=== PATIENT | female | born 2000 | race Caucasian/White ===

== ENCOUNTER 2020-10-01 11:00 | Outpatient (RCR) | payer BC, SELFPAY ==
--- NOTE | 2020-09-02 10:55 | PTOPEVAL ---
PHYSICAL THERAPY EVALUATION AND PLAN OF CARE Thank you for referring Rupert Zuniga to [facility].? The patient is scheduled to be seen for therapy?1x/week for 4-6 weeks. Please review, sign, date and return this plan of care RADHA. I agree with and certify that the following plan of care is medically necessary. Referring Physician Date Attending Provider: Yovany Velasquez MD Evaluation Outpatient Past Medical History Past Medical History No Past Medical/Surgical History Patient/Family Denies Significant Past Medical/ Surgical History Diagnosis right elbow pain Onset chronic Subjective Information States that for over a year Query Text:As Reported By Patient/ she has had difficulty Family straightening her right elbow. States that it used to be in pain all the time but now it is not. 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 Picking up her 2 year old, laying on the elbow, and trying to straighten it all can cause a sharp pain. Self Report Pain Assessment Right Elbow(s) Reported Pain Level 0 Pain Description Sharp Pain Frequency Chronic Lowest Pain Intensity 0 Greatest Pain Intensity 5 Pain Aggravating Factors ADL's,Lifting Pain Behaviors None Pain Score Pain Score 0: Self Report Interventions Used Interventions Used By Clinicians Exercise Pain Relief Interventions Used By Heat Patient Upper Extremity Range of Motion Elbow/Forearm Range of Motion Left Elbow Flexion - Active 140 Elbow Extension - Active 0 Right Elbow Flexion - Active 126 Elbow Extension - Active -25 Upper Extremity Muscle Strength Testing Scapular/Shoulder Bilateral Shoulder Flexion Strength 5 Normal Shoulder Extension Strength 5 Normal Shoulder Abduction Strength 5 Normal Elbow/Forearm Left Elbow Flexion Strength 5 Normal Elbow Extension Strength 5 Normal Forearm Pronation Strength 4+ Good + Forearm Supination Strength 4+ Good + Right Elbow Flexion Strength 4 Good Elbow Extension Strength 3 Fair Forearm Pronation Strength 4 Good Forearm Supination Strengt
--- NOTE | 2020-09-11 08:27 | PCPTNOTE ---
Patient called & cancelled scheduled appointment this date due to no childcare.
--- NOTE | 2020-09-25 15:55 | PCPTNOTE ---
Patient called & cancelled scheduled appointment this date due to unable to find child care assistant.
--- NOTE | 2020-10-01 11:36 | PTOPEVAL ---
PHYSICAL THERAPY PROGRESS NOTE Thank you for referring Rupert Zuniga to [facility].? The patient is scheduled to be seen for a follow up therapy?appointment in one month. She is progressing well and due to difficulty with residential child care counselor, we reduced frequency down to once a month. Please review, sign, date and return this plan of care RADHA. I agree with and certify that the following plan of care is medically necessary. Referring Physician Date Attending Provider: Yovany Velasquez MD Progress Diagnosis right elbow pain Onset chronic Subjective Information reports she continues to have Query Text:As Reported By Patient/ pain in right elbow. She Family acknowledges that she started working again ([employer]) and that likely contributes to pain. Pain Score Pain Score 4: Self Report Interventions Used Interventions Used By Clinicians Exercise,Joint Mobilization, Manual Therapy Techniques Upper Extremity Range of Motion Elbow/Forearm Range of Motion Left Elbow Flexion - Active 140 Elbow Extension - Active 0 Right Elbow Flexion - Active 136 Elbow Extension - Active -13 Upper Extremity Muscle Strength Testing Scapular/Shoulder Bilateral Shoulder Flexion Strength 5 Normal Shoulder Extension Strength 5 Normal Shoulder Abduction Strength 5 Normal Elbow/Forearm Left Elbow Flexion Strength 5 Normal Elbow Extension Strength 5 Normal Forearm Pronation Strength 4+ Good + Forearm Supination Strength 4+ Good + Right Elbow Flexion Strength 4+ Good + Elbow Extension Strength 4+ Good + Forearm Pronation Strength 4+ Good + Forearm Supination Strength 4+ Good + Wrist Strength Right Wrist Flexion Strength 4 Good Wrist Extension Strength 4 Good Palpation Assessment Palpation Palpation significant trigger point noted to right wrist extensors and right triceps distally General Exercise General Exercises Side Right Exercise Location elbow Exercise Type Active,Resistive Exercise Description -eccentric elbow extension red Query Text:Record Sets, Reps, theraband x10 Resistance, and Position -1# supination/pronation at 90deg [id number] - tricep stretch overhead [id number]; Manual Therapy Side Right Manual Therapy Location Elbow Patient Position Supine Manual Therapy Treatment Passive Stretching,Soft Tissue
--- NOTE | 2020-10-29 08:34 | PCPTNOTE ---
Addendum entered by Nicole Rosario, PT, DPT 10/29/20 15:36: Spoke with patient on the phone about rescheduling this appointment. She would like to speak with doctor at her appointment tomorrow and will get back to us. Original Note: Patient did not show up for scheduled appointment this date.
--- NOTE | 2020-11-18 07:57 | PCPTNOTE ---
PHYSICAL THERAPY DISCHARGE NOTE Attending Provider: Yovany Velasquez MD Patient:Rupert Zuniga Date of :2000 Patient has not returned for any further treatments since 10/01/2020, therefore will be discharged at this time. Patient?s initial visit was on 09/02/2020. The goals have been (met, not met, partially met). Thank you for referring this patient to [facility]. Please review, sign, date and return this discharge summary RADHA. I have been updated about the patient's current status and I agree with discharge from the above service at this time. Referring Physician Date
== END 2020-11-18 12:44 | disposition home or self-care (01) ==
LOC: ANHPT 11:00
PROVIDERS: Visit Provider Orthopaedic Surgery
DX: M25.521 Pain in right elbow (principal)
CPT/HCPCS: 97110; 97140; 97161

== ENCOUNTER 2020-10-28 09:12 | Outpatient (CLI) | payer BC, SELFPAY ==
--- NOTE | ~2020-10-28 | MR_ITS ---
EXAMINATION: MR elbow RT wo con DATE: 10/28/2020 10:04 INDICATION: Right elbow pain. TECHNIQUE: Magnetic resonance imaging (MRI) of the right elbow was performed without intravenous cont rast. Sequences included coronal, axial, and sagittal PD-weighted FS FSE and coronal, axial, and sagi ttal PD-weighted FSE. COMPARISON: Right elbow radiographs 07/17/2020 FINDINGS: Osseous/other: Bone alignment is normal. No fracture. There are erosions in the elbow joint, most prominent in the b one not covered by cartilage. There are areas of partial-thickness cartilage loss. Tendons: Biceps tendon and brachialis tendon are normal. The common flexor tendon and common extensor tendon a re normal. The triceps tendon is normal. Ligaments: Radial collateral ligament, lateral ulnar collateral ligament, and ulnar collateral ligament are unre markable. Cubital tunnel: The ulnar nerve is normal. Fluid: There is a large elbow joint effusion. IMPRESSION: 1. Large elbow joint effusion with erosions, consistent with inflammatory arthritis versus septic art hritis. Reviewed, dictated and finalized at location A. IMPRESSION: 1. Large elbow joint effusion with erosions, consistent with inflammatory arthr itis versus septic arthritis.
== END 2020-10-28 09:13 | disposition home or self-care (01) ==
LOC: ANHIMG 09:14
PROVIDERS: Visit Provider Orthopaedic Surgery
DX: M25.521 Pain in right elbow (principal); M25.421 Effusion, right elbow
CPT/HCPCS: 73221